=== PATIENT | male | born 1995 | race Caucasian/White ===

== ENCOUNTER 2016-09-05 22:02 | Inpatient (IN) ==
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
[2016-09-05] MEDS ORDERED: Azithromycin 500 MG in D5% in Water 250 ML IVPB ONE (23:00)
[2016-09-05 23:02] LABS: Basophils # 0.1 K/mcL (0.0-0.2); Basophils % 0.4 %; Eosinophils # 0.1 K/mcL (0.0-0.6); Eosinophils % 1.1 %; Hematocrit 48.1 % (37.5-50.1); Hemoglobin 17.1 g/dL (12.9-16.9); Immature Granulocytes % 0.6 % (0-4); Lymphocytes # 2.1 K/mcL (0.6-4.6); Lymphocytes % 16.7 %; Mean Corpuscular HGB Conc 35.6 g/dL (31.6-35.5); Mean Corpuscular Hemoglobin 30.3 pg (28.0-33.3); Mean Corpuscular Volume 85.3 fL (83.0-100.0); Mean Platelet Volume 8.7 fL (9.4-12.4); Monocytes # 0.7 K/mcL (0.0-1.3); Monocytes % 5.9 %; Neutrophils # 9.2 K/mcL (1.6-8.9); Platelet Count 241 K/mcL (140-400); Red Blood Count 5.64 M/mcL (4.19-5.50); Red Cell Distribution Width 13.2 % (11.5-14.5); Segmented Neutrophils % 75.3 %
[2016-09-05 23:18] LABS: Alanine Aminotransferase 140 Units/L (0-55); Albumin 3.7 g/dL (3.5-5.0); Alkaline Phosphatase 70 Units/L (38-126); Aspartate Amino Transferase 86 Units/L (5-34); BUN/Creatinine Ratio 13 (6-26); Bilirubin,Total 0.6 mg/dL (0.2-1.2); Blood Urea Nitrogen 13 mg/dL (8-26); Calcium 8.8 mg/dL (8.6-10.8); Carbon Dioxide 21 mEq/L (19-29); Chloride 104 mEq/L (98-109); Globulin 3.6 g/dL (2.4-3.5); Glucose 178 mg/dL (70-99); Osmolality,Calculated 291 (280-300); Potassium 3.8 mEq/L (3.5-4.5); Sodium 138 mEq/L (136-145); Total Protein 7.3 g/dL (6.0-8.3); eGFR For African Americans > 60 (> 60); eGFR For Non-African Americans > 60 (> 60)
[2016-09-05 23:19] LABS: Ethanol < 10 mg/dL (0-10)
[2016-09-05 23:59] LABS: ABG Base Excess -1.7 mEq/L (-2.0 to 3.0); ABG HCO3 24.8 mEQ/L (21-27); ABG Oxygen Saturation 86 % (95-98); ABG PCO2 47 mmHg (35-45); ABG PH 7.33 pH Units (7.32-7.45); ABG PO2 55 mmHg (85-104); ABG TCO2 26.2 mEq/L (20-26)
[2016-09-06 00:01] LABS: Blood Gas FiO2 50 %
[2016-09-06] MEDS ORDERED: Ondansetron 4 MG/2 ML VIAL IVP ONE (01:03)
[2016-09-06] MEDS ORDERED: *HR* Morphine 2 MG/ML SYRINGE IVP PRN (01:48)
[2016-09-06] MEDS ORDERED: Naloxone 0.4 MG/ML INJ IVP PRN (01:48)
[2016-09-06] MEDS ORDERED: Acetaminophen 325 MG TABLET PO PRN (01:48)
[2016-09-06] MEDS ORDERED: Ibuprofen 600 MG TABLET PO PRN (01:48)
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
[2016-09-06] MEDS: Albuterol 2.5 MG/3 ML NEBULIZER IH SCH ×4 (04:39→22:47)
[2016-09-06] MEDS ORDERED: *HR* HYDROcodone/Acet 5/325 mg TABLET PO PRN (05:55)
[2016-09-06] MEDS ORDERED: Aspirin 81 MG TAB.CHEW PO ONE (06:00)
[2016-09-06 06:15] LABS: Chol/HDL Ratio 5.1 (0-4.9)
[2016-09-06] MEDS: *HR* Enoxaparin 40 MG/0.4 ML SYRINGE SQ SCH (06:27)
[2016-09-06 06:35] LABS: Thyroid Stimulating Hormone 0.795 mcIU/mL (0.350-4.840)
[2016-09-06] MEDS: levoFLOXacin 750 MG TABLET PO SCH (07:49)
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
--- NOTE | 2016-09-06 16:12 | Electrocardiograph Report ---
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
[2016-09-06] MEDS ORDERED: diazePAM 2 MG TABLET PO PRN (17:55)
[2016-09-06 17:56] LABS: Magnesium 2.2 mg/dL (1.6-2.6); Phosphorous 3.3 mg/dL (2.3-4.7)
[2016-09-06 17:59] LABS: Magnesium 2.2 mg/dL (1.6-2.6); Phosphorous 2.7 mg/dL (2.3-4.7)
[2016-09-07] MEDS: *HR* Enoxaparin 40 MG/0.4 ML SYRINGE SQ SCH (04:43)
[2016-09-07] MEDS: levoFLOXacin 750 MG TABLET PO SCH (07:36)
[2016-09-07 08:31] LABS: Basophils % 0.3 %; Eosinophils # 0.1 K/mcL (0.0-0.6); Eosinophils % 1.1 %; Hematocrit 41.6 % (37.5-50.1); Immature Granulocytes % 0.3 % (0-4); Lymphocytes # 2.8 K/mcL (0.6-4.6); Lymphocytes % 23.2 %; Mean Corpuscular HGB Conc 34.9 g/dL (31.6-35.5); Mean Corpuscular Volume 88.9 fL (83.0-100.0); Mean Platelet Volume 8.9 fL (9.4-12.4); Monocytes % 8.3 %; Platelet Count 190 K/mcL (140-400); Red Blood Count 4.68 M/mcL (4.19-5.50); Red Cell Distribution Width 13.5 % (11.5-14.5); Segmented Neutrophils % 66.8 %
[2016-09-07 08:35] LABS: Hemoglobin 14.5 g/dL (12.9-16.9)
[2016-09-07 08:46] LABS: Hemoglobin A1C 5.2 %
[2016-09-07] MEDS ORDERED: Aspirin 81 MG TAB.CHEW PO SCH (09:00)
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
--- NOTE | 2016-09-07 10:06 | ECHO - Doppler Report ---
Echocardiogram Name: Jose G Salazar Date of Study: 09/07/2016 Date: 1995 Ht: 71.0 in Medical Record#: [id number] Age: 20 Wt: 306.0 lb Gender: Male BSA: 2.53 Order #: [id number] Location: [facility] Room #: 2N01 Reading Physician: Clara Manzano DO Log Operations Coordinator: Palak Wang RVT, [facility] Ordering Physician: Thang Munroe MD Primary Physician: None Indications: Elevated troponin, Hypoxic respiratory failure Impressions: LVEF 60%. Normal left ventricular size and systolic function. Normal diastolic function of the left ventricle. Normal right ventricular size and function. No significant valvular dysfunction. No pulmonary hypertension. Left Ventricular Wall Motion: Rest Echo Findings All wall segments showed normal motion. Findings: Study Quality * Technically adequate exam. ECG Findings * Normal sinus rhythm. Left Ventricle * LVEF 60%. * Normal LV chamber size, wall thickness and function. * Normal left ventricular diastolic function. Aortic Valve * No aortic regurgitation. * Aortic valve not well visualized. * No aortic stenosis. Mitral Valve * No mitral regurgitation. * Normal mitral valve structure. * No mitral stenosis. Tricuspid Valve * Tricuspid valve not well visualized. * No tricuspid regurgitation. * Estimated RA pressure is 3 mmHg. Pulmonic Valve * Pulmonic valve is not well visualized. * No pulmonic stenosis. * No pulmonic regurgitation. Pulmonary Artery * Pulmonary artery not well visualized. Right Ventricle * Normal right ventricular structure and function. Left Atrium * Normal left atrial size. Right Atrium * Normal right atrial size. Interatrial Septum * No evidence of PFO by color Doppler. IVC * Normal IVC dimensions and inspiratory collapse. Pericardium * There is no pericardial effusion present. Aorta * Not well visualized. History Hypertension Measurements: BP: 147/ 81 2D Normal Values RVIDd: 3.10 cm <2.7 cm IVSd: 1.20 cm 0.6 - 1.0 cm LVIDd: 4.90 cm 3.7 - 5.6 cm LVPWd: 1.20 cm 0.6 - 1.1 cm LVIDs: 3.30 cm 1.5 - 3.6 cm AO: 2.40 cm < 4.0 cm LA: 4.20 cm 2.0 - 4.0cm %FS: 32.70 cm >25 % LA volume: 31 Mitral Valve Dec Time:306.00 msec Peak E:1.17 m/sec Peak A:.69 m/sec E/A Ratio:1.7 Peak E' Lat Matthew:14.2 cm/s Peak E' Med Matthew:12.4 cm/s E/E' Lat Ratio:8.2 E/E' Med Ratio:9.4 Updated by Clara Manzano on 09/07/2016 10:02:39 AM electronically signed on 09/07/2016 10:03:27 AM with status of Final Wall Motion [place]: 1=Normal, 2=Hypokinesis, 3=Akinesis, 4=Dyskinesis, 5=Aneurysmal, 6=Hyperkinetic, X=Not Visualized (Blank)=Missing
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
[2016-09-07 16:05] VITALS: BP 154/91
== END 2016-09-07 17:05 | disposition home or self-care (01) | DRG 917 ==
LOC: EMEROO 22:02 → 2NNU 22:02 → SUATTDRO 09-06 01:48
PROVIDERS: ADMIT Family Medicine; ATTEND Internal Medicine